=== PATIENT | female | born 2000 | race Caucasian/White ===

== ENCOUNTER 2019-10-29 14:00 | Outpatient (RCR) | payer OTHER, SELFPAY ==
--- NOTE | 2019-09-15 18:22 | HP.PTEVAL_ITS ---
Patient's Visit Information VANESSA TAYLOR is a 18 year old F referred to Physical Therapy by AUGUSTINA SIMENTAL with a diagnosis of B knee pain. Date of Evaluation: 09/15/19 Physical Therapist: Brent Lofton DPT - Visit Plan Frequency: 2x /Week Duration: 6 Weeks Plan: Start with end range quad stretching, HS stretching and TFL stretcing. Progress complexity and resistances with glute/quad/hip ER/IR strengthening exercises to promote improve tracking. Add in modalities as needed. - Subjective Subjective: Pt. is here today for her initial evaluation with diagnosis of B knee pain. 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 Pt. reports having incrased pain for a few months now. No mech of injury, but has increased pain with jumping, terminal knee extension, squating, and running. Pt. was cleared to play, but has been having pain. Pt. has been doing PT exercises at school and now at home including hip/core stability/strengthening and modalities including DN/cupping/scrapping techniques. Pt. reports the modalities improve her symptoms, but only temporarily. Pt. has pain located at superior aspects of B petella into quad tendons, R worse than L. Painful to touch, R worse than L. - Pain R suprapatellar region Pain Intensity (Out of 10): 3 Pain Intensity Range: 3, 7 Comment: 7/10 with squating and terminal knee extension L suprapatellar region Pain Intensity (Out of 10): 1 Pain Intensity Range: 0, 3 Comment: Increased pain with squating and TKE - Objective POSTURE: Pt. has decent knee posture in stance, slight B femoral IR with slight knee valgus. Pt. has marked over pronation in stance, worse in single leg stance. (pt. has been fit with orthotics adn is in process of increasing wearing routine). PALPATION: Pt. has increased tenderness at superior aspects of patella B (R worse than L). Pt. has tenderness extending into quad tendons as well (again R worse than L). No joint line pain, not MCL, patellar tendon or LCL pain. No joint effusion or suprapatellar bursa imflammation noted. NEURO: normal throughout sensation and DTR of BLEs. Pt. is able to amnbulate on heels and toes without limitations or issues. ROM: Pt. has full knee ROM withtout increase in symptoms. pain with all hip joint mobility. Pt. has tightness in her TFL bilaterally, marked quad and HS tightness bilaterally and equally. Pt. has tightnes in B ankle DF. MMT: RLE: ankle 5/5 throughout; knee- ext 4+/5 in mid range increase nW, 4/5 at TKE increase in symptoms, flexion 5-/5 NE; hip- flexion. 5-/5, abd 5/5, ER 25.3lbs, IR 22.6 lbs. LLE- ankle 5/5 throughout; knee- extr 4+/5 at mid range, 4+/5 increase NW at TKE, flexion 5-/5 increase NE; hip- flexion 5-/5, abd 5/5, ER 28.7lbs, IR 25.7 lbs. GAIT: Pt. has marked B over pronation and instability and B ankles. Pt. has normal hip and knee positoning with slight B knee valgus, most likely due to over pronation at B feet. SQUAT- tight calves, anterior translation of B knees, no valgus/varus deformity. - Special Tests R Knee Tika - Meniscus: Negative R Knee Apley - Meniscus: Negative R Knee Anterior Drawer - ACL: Negative R Knee Pivot Shift - ACL, Ant. Rotator Instability: Negative R Knee Valgus - MCL: Negative R Knee Varus - LCL: Negative R Knee Patellar Grind - PFS: Positive L Knee Tika - Meniscus: Negative L Knee Apley - Meniscus: Negative L Knee Anterior Drawer - ACL: Negative L Knee Posterior Drawer - PCL: Negative L Knee Valgus - MCL: Negative L Knee Varus - LCL: Negative L Knee Patellar Grind - PFS: Positive - Goals Goal 1:: LTG: Pt. to be I with HEP. Goal Time Frame: 4-6 Weeks Goal 2:: STG: Pt. to have increased quad length to full without increase in symptoms. Goal Time Frame: 2-4 Weeks Goal 3:: LTG: Pt. to have increased strength throughout B LEs by 1/2 grade. Goal Time Frame: 4-6 Weeks Goal 4:: STG: Pt. to have active TKE of B LEs without increase in symptoms. Goal Time Frame: 2-4 Weeks Goal 5:: LTG: Pt. to have good squat mechanics without increase in B knee pain. Goal Time Frame: 4-6 Weeks Goal 6:: LTG: Pt. to resume volleyball related activities including jumping without increase in symptoms. Goal Time Frame: 4-6 Weeks - Rehabilitation Potential Physical Therapy Diagnosis: Pt. 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 Pt. has tightness in B quad and HS, marked increased symptoms with TKE at superior aspect of B patella R worse than L. Pt. has B over pronation and marked quad and HS weakness. Pt. would benefit from PT to increase quad length, quad strength to allow for better tracking and reduce force reaction at patella/femoral joint. Rehabilitation Potential: Excellent - Anticipated Interventions Patient/Client Instruction: Educate patient on: Condition, Plan of Care, Risk Factors, Benefits of Fitness Program For the Purpose of:: To foster healthy habits, To improve decision making, To facilitate caregiver knowledge, To improve self management, To prevent re- injury, To improve ability to perform tasks related to life management, To improve tolerance to ADL's Therapeutic Exercise to Include: Strength training, Power training, Endurance training, Body mechanics, Postural training, Active ROM, Dynamic Lumbar Stabilization For the Purpose of:: To decrease pain, To decrease swelling/inflammation, To increase ROM, To improve nutrient delivery to tissue, To increase oxygenation perfusion, To improve muscle performance and motor function, To improve ability to perform ADL's, To increase tolerance to activity/condition/position, To improve health of tissue, To decrease soft tissue restriction, To increase flexibility/ROM Manual Therapy Techniques to Include: Functional dry needling For the Purpose of:: To decrease pain, To decrease swelling/inflammation Cryotherapy (ice pack, ice massage): Yes For the Purpose of:: To decrease pain, To increase ROM Thank you for the opportunity to evaluate your patient. For Medicare and Medicare HMO plans, please review the plan of care and approve it. It will need to be FAXED BACK to us at [phone] for Medicare purposes. For Medicare only, by signing this I certify the plan of care. Please let me know if there are questions or concerns regarding this plan of care. Physician Signature: Date:
== END 2019-10-29 17:00 | disposition home or self-care (01) ==
LOC: PT 14:00
PROVIDERS: PCP Family Medicine
DX: M22.2X1 Patellofemoral disorders, right knee (principal)
CPT/HCPCS: 97110; 97161

== ENCOUNTER 2020-12-18 14:30 | Outpatient (RCR) | payer OTHER, SELFPAY ==
--- NOTE | 2020-11-07 12:38 | HP.PTEVAL ---
Patient's Visit Information VANESSA TAYLOR is a 20 year old F referred to Physical Therapy by CHEPE SILVER with a diagnosis of R ACL reconstruction with Hamstring autograft. Date of Evaluation: 11/06/20 Physical Therapist: Brent Lofton DPT - Visit Plan Frequency: 3x /Week Duration: 8 weeks Plan: Start with quad, glute med, core strengthening. Add in gait mechanics to improve core. Progress per pillai protocol. - Subjective Pt. is here today for her initial evaluation with diagnosis of R ACL repair with hamstring autograft. DOS: 09/21/20. Pt. reports overall doing well. She is no longer having any pain, but is dealing with some edema in knee and distally. 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 She hurt it when she landed resulting in a R rotational injury to her knee. Pt. has been seeing PT and AT at school, working mostly on quad activation and ROM of her R knee. Pt. is no longer using any crutches and is WBAT. She reports minimal pain. HEP consists of quad sets, SLR, heel slides. Pt. reports overall doing well. Pt. reports no calf pain, no fever, no issues overall. Pt. does describe some superficial numbness, most likely due to incision. Pt. is to return back to school at the end of November for a summer class. 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 - Pain R knee Pain Intensity (Out of 10): 0 Pain Intensity Range: 0, 2 - Objective POSTURE: Pt. has good posture in stance. She has slight lateral wt.s hifting to L side. Pt. has good TKE in B knees in stance. No pain noted. PALPATION: pt. has no pain with palpation. Pt. has marked joint effusion in R knee, but no pitting edema noted. Some swelling in distal LEs as well. Pt. has negative homans sign in BLEs. NEURO: Pt. has normal sensation in BLEs. Pt. does have slight superficial numbness at R lateral distal LEs, expected due to inicsion. ROM: LLE: ankle and hip normal. L knee 0-0-141deg no issues with over pressure. RLE: ankle and hip normal ROM, slight tightness with HS length. L knee 0-0-138deg. MMT: LLE: 5/5 throughout including ankle, knee and hip. RLE: ankle 5/5 throughout; knee: ext 20 reps SLR without extensor lag. Flexion: 4/5; hip; flexion 4/5, abd 4+/5, ext 4+/5. Core strength- fair+. SQUAT: Pt. has decent squat mechanics (partial squat), she does have visible quad weakness resulting in increase valgus positioning, but improved with VCing. GAIT: Pt. has pretty good gait mechanics. Pt. has good TKE during stance phase on RLE, but does lack some knee flexion during swing phase of RLE. STAIRS: Pt. is able to negotiate steps with reciprocal pattern with 1 HR, but does have slight valgus on R knee with eccentric lowering and slight femoral IR as well. - Goals Goal 1:: LTG: Pt. to be I with HEP. Goal Time Frame: 4-6 Weeks Goal 2:: STG: Pt. to had reduced edema symmetrical to LLE. Goal Time Frame: 2-4 Weeks Goal 3:: STG: Pt. to ambulate with normal pattern without increase in symptoms. Goal Time Frame: 2-4 Weeks Goal 4:: LTG: pt. to have 5/5 RLE strength without increase in symptoms. Goal Time Frame: 4-6 Weeks Goal 5:: LTG: Pt. to have good squat mechanics without increase in R knee valgus or increase in pain. Goal Time Frame: 6-8 Weeks - Rehabilitation Potential Physical Therapy Diagnosis: Pt. has signs and symptoms consistent with R ACL reconstruction with hamstring autograft. Pt. has subsequent hypomobility, weakness and difficulty with playing sports. Pt. would benefit from PT to address the above limitations progressing back to sporting activities per protocol. Rehabilitation Potential: Excellent - Anticipated Interventions Patient/Client Instruction: Educate patient on: Condition, Plan of Care, Risk Factors, Benefits of Fitness Program For the Purpose of:: To prevent re-injury, To improve ability to perform tasks related to life management, To improve tolerance to ADL's Therapeutic Exercise to Include: Strength training, Power training, Endurance training, Balance training, Body mechanics, Postural training, Flexibilty training, Gait and locomotor training, Passive ROM, Dynamic Lumbar Stabilization For the Purpose of:: To decrease pain, To decrease swelling/inflammation, To increase ROM, To improve nutrient delivery to tissue, To increase oxygenation perfusion, To improve muscle performance and motor function, To improve ability to perform ADL's, To increase tolerance to activity/condition/position, To improve ability of physical actions for home/community/work/leisure, To improve gait and locomotor functions, To improve health of tissue, To decrease soft tissue restriction, To increase flexibility/ROM Other electric stimulation: Yes - direct current NMES For the Purpose of:: To decrease pain, To increase ROM, To improve nutrient delivery to tissue, To increase oxygenation perfusion, To improve muscle performance and motor function Thank you for the opportunity to evaluate your patient. For Medicare and Medicare HMO plans, please review the plan of care and approve it. It will need to be FAXED BACK to us at [phone] for Medicare purposes. For Medicare only, by signing this I certify the plan of care. Please let me know if there are questions or concerns regarding this plan of care. Physician Signature: Date:
--- NOTE | 2020-11-14 14:27 | HP.PTREVAL_ITS ---
CHEPE SILVER, It has been my pleasure to treat VANESSA TAYLOR over the last 5 visits for R ACL reconstruction with Hamstring autograft. Please see the progress note below for an update on the physical therapy plan of care! Subjective: Pt. reports overall doing well. She is to see surgeon tomorrow. Pt. reports no pain with her knee. Pt. is HEP compliant. Objective/Function: ROM: 0-0-141deg. Tightness in HS and quads. QUad girth: 6 above patella- R 19inch, L 20.25 inch. MMT: RLE: knee: exte 20.5lbs (non break testing), flexion 20.0 lbs. LLE: knee ext 50.2lbs, flexion 44.4lbs. Squat bilateral LEs: Slight Wt. shfit to L side. SLS: slight knee valgus (eccentric only). Overall she is doing very well. Pt. has met criteria to progress to phase III at this point in time. Plan to do so next week. Plan Plan: Continue to have the pt. work on strengthening the R lower extremity and increase her balance and proprioception. Goals Goal 1:: LTG: Pt. to be I with HEP. Goal Time Frame: 4-6 Weeks Goal 2:: STG: Pt. to had reduced edema symmetrical to LLE. Goal Time Frame: 2-4 Weeks Goal Progress: Progressing Goal 3:: STG: Pt. to ambulate with normal pattern without increase in symptoms. Goal Time Frame: 2-4 Weeks Goal Progress: Progressing Goal 4:: LTG: pt. to have 5/5 RLE strength without increase in symptoms. Goal Time Frame: 4-6 Weeks Goal Progress: Progressing Goal 5:: LTG: Pt. to have good squat mechanics without increase in R knee valgus or increase in pain. Goal Time Frame: 4-6 Weeks Goal Progress: Progressing Anticipated Interventions Patient/Client Instruction: Educate patient on: Condition, Plan of Care, Risk Factors, Benefits of Fitness Program For the Purpose of:: To prevent re-injury, To improve ability to perform tasks related to life management, To improve tolerance to ADL's Therapeutic Exercise to Include: Strength training, Power training, Endurance training, Balance training, Body mechanics, Postural training, Flexibilty training, Gait and locomotor training, Passive ROM, Dynamic Lumbar Stabilization For the Purpose of:: To decrease pain, To decrease swelling/inflammation, To increase ROM, To improve nutrient delivery to tissue, To increase oxygenation perfusion, To improve muscle performance and motor function, To improve ability to perform ADL's, To increase tolerance to activity/condition/position, To improve ability of physical actions for home/community/work/leisure, To improve gait and locomotor functions, To improve health of tissue, To decrease soft tissue restriction, To increase flexibility/ROM Other electric stimulation: Yes - direct current NMES For the Purpose of:: To decrease pain, To increase ROM, To improve nutrient delivery to tissue, To increase oxygenation perfusion, To improve muscle p erformance and motor function Please do not hesitate to contact me at [phone] by phone or if you have questions or concerns regarding this new plan of care! Sincerely, TANIKA ReynaT
--- NOTE | 2021-05-30 11:17 | HP.PTDCNRP_ITS ---
VANESSA TAYLOR was seen in my office for initial evaluation on 11/06/20. The following Plan of Care was established for this patient: Initial Frequency: 3x /Week Initial Duration: 8 weeks Patient/Client Instruction: Educate patient on: Condition, Plan of Care, Risk Factors, Benefits of Fitness Program For the Purpose of:: To prevent re-injury, To improve ability to perform tasks related to life management, To improve tolerance to ADL's Therapeutic Exercise to Include: Strength training, Power training, Endurance training, Balance training, Body mechanics, Postural training, Flexibilty training, Gait and locomotor training, Passive ROM, Dynamic Lumbar Stabilization For the Purpose of:: To decrease pain, To decrease swelling/inflammation, To increase ROM, To improve nutrient delivery to tissue, To increase oxygenation perfusion, To improve muscle performance and motor function, To improve ability to perform ADL's, To increase tolerance to activity/condition/position, To improve ability of physical actions for home/community/work/leisure, To improve gait and locomotor functions, To improve health of tissue, To decrease soft tissue restriction, To increase flexibility/ROM Other electric stimulation: Yes - direct current NMES For the Purpose of:: To decrease pain, To increase ROM, To improve nutrient delivery to tissue, To increase oxygenation perfusion, To improve muscle performance and motor function This patient was last seen in our office 12/20/20. Pertinent comments regarding their Physical therapy will appear below: Pt. was seen in the initial stages of her ACL recovery. She was progressing as expected. She was discharged back to school. She has not attended PT in several months and will be DC to [facility]. At this point I will be discontinuing this patient from physical therapy. I would be happy to see this patient again in the future if found appropriate by the physician. Thank you! Brent Lofton, TANIKAT Balance/Gait/Functional tests - Balance/Special Test Scores Lower Extremity Functional Score: 66
== END 2020-12-18 19:00 | disposition home or self-care (01) ==
LOC: PT 14:30
PROVIDERS: PCP Family Medicine
DX: Z47.89 Encounter for other orthopedic aftercare (principal); Z98.890 Other specified postprocedural states
CPT/HCPCS: 97110; 97161; 97530